=== PATIENT | female | born 1975 | race Caucasian/White ===

== ENCOUNTER 2021-01-09 17:43 | Emergency (ER) | payer BC, OTHER ==
[2021-01-09] MEDS ORDERED: TETRACAINE 0.5% STERI-UNIT SOL OP STA (17:47)
[2021-01-09] MEDS ORDERED: TETRACAINE 0.5% STERI-UNIT SOL OP ONE (17:49)
[2021-01-09] MEDS ORDERED: Fluor-I-Strip/Ful-Flo OP ONE ×2 (17:51→17:52)
--- NOTE | 2021-01-09 17:51 | ERPHSYRPT ---
- History of Present Illness Time Seen by Provider: 01/09/21 17:51 Source: patient Exam Limitations: no limitations Patient Subjective Stated Complaint: L eye pain Triage Nursing Assessment: pt to ED c/o L eye pain 7/10 after getting possible FB in eye this morning in shower. pt states she flushed eye with a whole bottle of rinse but has had no relief. denies vision changes or difficulty. noted redness. Physician History: This is a 45-year-old white female who woke up this morning feeling fine splashed cool water on her face and then suddenly had redness tearing of the left eye and a sensation of a foreign body. She attempted to irrigate the eye at work. She feels as though it is more of a foreign body rather than a scratch. She has no other explanation for this. This is never happened to her in the past. She does have a little bit of a headache behind the eye. She has light sensitivity is present in the left eye. Timing/Duration: today Location: left eye Severity: mild Apparent Injury: possibly Associated Symptoms: burning, itching, sensitivity to light, redness, foreign b arnoldo sensation Visual Assistive Devices: None Chemical Exposure: No Trauma: No Welding Arc/Tanning Bed Exposure: No Allergies/Adverse Reactions: No Known Drug Allergies Allergy (Verified 01/09/21 17:51) Hx Tetanus, Diphtheria Vaccination/Date Given: No Hx Influenza Vaccination/Date Given: No Hx Pneumococcal Vaccination/Date Given: No Travel Risk - International Travel Have you traveled outside of the country in past 3 weeks: No - Coronavirus Screening Are you exhibiting any of the following symptoms?: No Close contact with a COVID-19 positive Pt in past 14-21 Days: No - Vaccine Status Have you recieved a Covid-19 vaccination: No - Review of Systems Constitutional: No Symptoms Eyes: Eye Redness, Foreign Body Sensation, Other (Sensitivity) Ears, Nose, & Throat: No Symptoms Respiratory: No Symptoms Cardiac: No Symptoms Abdominal/Gastrointestinal: No Symptoms Genitourinary Symptoms: No Symptoms Musculoskeletal: No Symptoms Skin: No Symptoms Neurological: No Symptoms Psychological: No Symptoms Endocrine: No Symptoms Hematologic/Lymphatic: No Symptoms Immunological/Allergic: No Symptoms All Other Systems: Reviewed and Negative - Past Medical History Pertinent Past Medical History: No Neurological History: No Pertinent History ENT History: No Pertinent History Cardiac History: No Pertinent History Respiratory History: No Pertinent History Endocrine Medical History: No Pertinent History Musculoskeletal History: No Pertinent History GI Medical History: No Pertinent History History: No Pertinent History Psycho-Social History: No Pertinent History Female Reproductive Disorders: No Pertinent History - Past Surgical History Past Surgical History: No - Social History Smoking Status: Never smoker Exposure to second hand smoke: No Drug Use: none Patient Lives Alone: No - Female History Hx Now: No - Nursing Vital Signs Nursing Vital Signs: Initial Vital Signs Temperature 97.7 F 01/09/21 17:44 Pulse Rate 95 H 01/09/21 17:44 Respiratory Rate 18 01/09/21 17:44 Blood Pressure 134/78 01/09/21 17:44 O2 Sat by Pulse Oximetry 99 01/09/21 17:44 Pain Scale Pain Intensity 7 - Physical Exam General Appearance: no apparent distress, alert, anxiety Eye Exam: right eye: normal inspection, left eye: PERRL, EOMI, other (Conjunctivitis) Ears, Nose, Throat Exam: normal ENT inspection, moist mucous membranes Neck Exam: normal inspection, non-tender, supple, full range of motion Respiratory Exam: lungs clear, airway intact, No chest tenderness, No respiratory distress Gastrointestinal Exam: No tenderness Extremity Exam: normal inspection, normal range of motion, pelvis stable Neurologic: alert, oriented x 3, cooperative, 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, normal mood/affect, nml cerebellar function, nml station & gait, sensation nml Skin Exam: normal color, warm, dry Lymphatic: No adenopathy SpO2 Interpretation: normal SpO2: 99 O2 Delivery: Room Air - Course Nursing assessment & vital signs reviewed: Yes Ordered Tests: Medication Summary Discontinued Medications Generic Name Dose Route Start Last Admin Trade Name Cora PRN Reason Stop Dose Admin Eye Irrigation Solution 15 ml 01/09/21 17:53 01/09/21 17:54 Eye-Stream Solution OP 01/09/21 17:54 15 ml STAT ONE Administration Eye Irrigation Solution Confirm 01/09/21 17:53 Eye-Stream Solution Administered 01/09/21 17:54 Dose 30 ml .ROUTE .STK-MED ONE Fluorescein Sodium 1 mg 01/09/21 17:51 01/09/21 17:53 Dqpyc-O-Fqenk/Ful-Alonso OP 01/09/21 17:52 1 mg STAT ONE Administration Fluorescein Sodium Confirm 01/09/21 17:52 Mivfh-J-Tjnam/Ful-Alonso Administered 01/09/21 17:53 Dose 1 mg OP .STK-MED ONE Tetracaine HCl 4 ml 01/09/21 17:47 01/09/21 17:52 Tetracaine 0.5% Steri-Unit Alexandra OP 01/09/21 17:48 4 ml STAT STA Administration Tetracaine HCl Confirm 01/09/21 17:49 Tetracaine 0.5% Steri-Unit Alexandra Administered 01/09/21 17:50 Dose 4 ml OP .STK-MED ONE - Progress Progress: improved, pain not gone completely, re-examined Counseled pt/family regarding: diagnosis, need for follow-up - Departure Departure Disposition: Home Clinical Impression: Conjunctivitis, left eye Condition: Stable Critical Care Time: No Referrals: ASHLEY NEWBY [Primary Care Provider] - Additional Instructions: Use the antibiotic ointment in left eye 3 times a day. In between, flushed her eye out with Eye-Stream solution. Take the medication as prescribed. Follow-up with your primary care physician or ophthalmology in 3 to 4 days if symptoms have not improved. Return to the emergency department if symptoms actually worsened. Prescriptions: Hydrocodone/APAP 5/325 [Redford 5/325 mg] 1 each PO Q8H PRN PRN #6 tablet MDD 3 PRN Reason: Pain Erythromycin Base 3.5 gm [Erythromycin 3.5 GM OPHTH.] 3.5 gm OP TID #1 tube Ondansetron HCl [Zofran] 4 mg PO TID PRN #10 tablet PRN Reason: Nausea/Vomiting
[2021-01-09] MEDS ORDERED: Eye-Stream Solution OP ONE (17:53)
[2021-01-09] MEDS ORDERED: Eye-Stream Solution ONE (17:53)
[2021-01-09 18:54] VITALS: BP 145/86; PULSE 88; O2SAT 98
== END 2021-01-09 18:54 | disposition home or self-care (01) ==
LOC: ED 17:43
DX: H10.9 Unspecified conjunctivitis (principal); H57.12 Ocular pain, left eye
CPT/HCPCS: 99283; A9270-GY

== ENCOUNTER 2021-03-14 23:43 | Emergency (ER) | payer OTHER ==
[2021-03-14] MEDS ORDERED: TETRACAINE 0.5% STERI-UNIT SOL OP ONE (23:58)
[2021-03-15 00:11] VITALS: O2SAT 100
[2021-03-15] MEDS: TETRACAINE 0.5% STERI-UNIT SOL OP STA (00:12)
--- NOTE | 2021-03-15 00:17 | ERPHSYRPT ---
- History of Present Illness Time Seen by Provider: 03/15/21 00:11 Source: patient Patient Subjective Stated Complaint: pt states "Something made its way to the front of the eye." Triage Nursing Assessment: pt ambulated into the er; pt is axo x4; pt is holding left eye; pt is restless; pt c/o left eye pain; pt states that she was in the er a month prior for foreign body in left eye; pt states that the eye improved with medication; pt states that tonight she was use head lice shampoo when she got some in her left eye; pt states that she rinsed her eye; pt states that she feel like there is something moving around in her eye; pt states that she had no relief with flushing her eye; pt is guarding left eye; pt covering left eye with hand and not letting this examine eye; left sclera is red; left is red and swollen; clear discharge present to left eye; vitals wnl; pt states 6/10 pain to left eye Physician History: This is a 46-year-old female that presents with left eye pain and redness after washing her hair with lice shampoo. She stated that she did get some of the shampoo in her left eye and she immediately rinsed out her left eye. However she began having pain in her left eye and there is associated redness and she could not open the eye. The left eye was tearing. Therefore she came into the emergency room for evaluation. Patient states she still has her erythromycin ophthalmic ointment prescription at the pharmacy from her prior evaluation Timing/Duration: today Location: left eye Severity: mild Apparent Injury: possibly Associated Symptoms: burning, sensitivity to light, redness, foreign body sensation Allergies/Adverse Reactions: No Known Drug Allergies Allergy (Verified 03/14/21 23:49) Home Medications: No Reportable Medications [No Reported Medications] 03/14/21 [History] Hx Tetanus, Diphtheria Vaccination/Date Given: No Hx Influenza Vaccination/Date Given: No Hx Pneumococcal Vaccination/Date Given: No Travel Risk - International Travel Have you traveled outside of the country in past 3 weeks: No - Coronavirus Screening Are you exhibiting any of the following symptoms?: No Close contact with a COVID-19 positive Pt in past 14-21 Days: No - Vaccine Status Have you recieved a Covid-19 vaccination: No - Review of Systems Constitutional: No Symptoms Eyes: Eye Pain, Eye Redness, Tearing Ears, Nose, & Throat: No Symptoms Respiratory: No Symptoms Cardiac: No Symptoms Abdominal/Gastrointestinal: No Symptoms Genitourinary Symptoms: No Symptoms Musculoskeletal: No Symptoms Skin: No Symptoms Neurological: No Symptoms Psychological: No Symptoms Endocrine: No Symptoms Hematologic/Lymphatic: No Symptoms Immunological/Allergic: No Symptoms All Other Systems: Reviewed and Negative - Past Medical History Pertinent Past Medical History: No Neurological History: No Pertinent History ENT History: No Pertinent History Cardiac History: No Pertinent History Respiratory History: No Pertinent History Endocrine Medical History: No Pertinent History Musculoskeletal History: No Pertinent History GI Medical History: No Pertinent History History: No Pertinent History Psycho-Social History: No Pertinent History Female Reproductive Disorders: No Pertinent History - Past Surgical History Past Surgical History: No - Social History Smoking Status: Former smoker Exposure to second hand smoke: No Drug Use: none Patient Lives Alone: No - Female History Hx Now: No - Nursing Vital Signs Nursing Vital Signs: Initial Vital Signs Pulse Rate 95 H 03/14/21 23:50 Respiratory Rate 18 03/14/21 23:50 Blood Pressure 127/81 03/14/21 23:50 O2 Sat by Pulse Oximetry 100 03/14/21 23:50 Pain Scale Pain Intensity 6 - Physical Exam General Appearance: no apparent distress, alert, anxiety Eye Exam: right eye: normal inspection, left eye: conjunctival inflammation, bilateral eye: PERRL, EOMI Ears, Nose, Throat Exam: normal ENT inspection, moist mucous membranes Neck Exam: normal inspection, non-tender, supple, full range of motion Respiratory Exam: chest tenderness, airway intact Gastrointestinal Exam: No tenderness Extremity Exam: normal inspection, normal range of motion, pelvis stable Neurologic: alert, oriented x 3, cooperative, 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, normal mood/affect, nml cerebellar function, nml station & gait, sensation nml Skin Exam: normal color, warm, dry Lymphatic: No adenopathy SpO2 Interpretation: normal SpO2: 100 O2 Delivery: Room Air - Course Nursing assessment & vital signs reviewed: Yes Ordered Tests: Medication Summary Discontinued Medications Generic Name Dose Route Start Last Admin Trade Name Freq PRN Reason Stop Dose Admin Tetracaine HCl Confirm 03/14/21 23:58 Tetracaine 0.5% Steri-Unit Alexandra Administered 03/14/21 23:59 Dose 4 ml OP .STK-MED ONE - Progress Progress: improved, pain not gone completely Counseled pt/family regarding: diagnosis - Departure Departure Disposition: Home Clinical Impression: Inflammation of conjunctiva Condition: Stable Critical Care Time: No Referrals: ASHLEY NEWBY [Primary Care Provider] - Additional Instructions: Place 0.5 cm strip of erythromycin ophthalmologic ointment into the left eye 3 times a day for 5 days. Purchase [id number]-ekksesh eye rinse product and use 3 times a day as discussed. Follow-up with unit leader for persistent symptoms. The erythromycin ophthalmic ointment prescription from your pharmacy and use as directed
[2021-03-15] MEDS ORDERED: Erythromycin 1 GM ONE (00:20)
[2021-03-15] MEDS ORDERED: NORCO 5/325 MG ONE (00:21)
[2021-03-15] MEDS: Erythromycin 1 GM OP STA (00:22)
[2021-03-15] MEDS: NORCO 5/325 MG PO ONE (00:22)
[2021-03-15 00:34] VITALS: BP 135/88; PULSE 82
== END 2021-03-15 00:34 | disposition home or self-care (01) ==
LOC: ED 23:43
DX: H10.9 Unspecified conjunctivitis (principal)
CPT/HCPCS: 99283; A9270-GY

== ENCOUNTER 2021-03-15 12:11 | Emergency (ER) | payer OTHER ==
[2021-03-15] MEDS ORDERED: Eye-Stream Solution ONE (12:19)
[2021-03-15] MEDS ORDERED: TETRACAINE 0.5% STERI-UNIT SOL OP ONE (12:19)
[2021-03-15] MEDS ORDERED: Fluor-I-Strip/Ful-Flo OP ONE ×2 (12:19→12:24)
[2021-03-15] MEDS ORDERED: Eye-Stream Solution OP ONE (12:24)
[2021-03-15] MEDS ORDERED: TETRACAINE 0.5% STERI-UNIT SOL OP STA (12:24)
[2021-03-15 12:25] VITALS: BP 134/80; PULSE 96; O2SAT 100
--- NOTE | 2021-03-15 12:53 | ERPHSYRPT ---
- History of Present Illness Time Seen by Provider: 03/15/21 12:48 Source: patient Exam Limitations: no limitations Patient Subjective Stated Complaint: was here last night and still thinks that there is something in her left eye Triage Nursing Assessment: Pt drove self to the ER, vitals wnl, rates pain to left eye as 8/10, pt thinks something is in her left eye, vision 20/30 Physician History: right eye is 20/20 near vision in ER No FB with double lid eversion. irrigated. conjunctival irritation and mild drainage right eye. abrasion upper cornea right eye with fluorscein dye. in patchy. globe intact anterior chamber clear. no hx metal on metal . Timing/Duration: yesterday Location: right eye Severity: moderate Apparent Injury: possibly Associated Symptoms: pain, burning, sensitivity to light, redness, matting, eyelid swelling, foreign body sensation Visual Assistive Devices: Glasses, At Home Chemical Exposure: Yes (lice shampoo ) Trauma: Yes (water splashed in right eye when washing out) Welding Arc/Tanning Bed Exposure: No Allergies/Adverse Reactions: No Known Drug Allergies Allergy (Verified 03/15/21 12:23) Hx Tetanus, Diphtheria Vaccination/Date Given: Yes (today) Hx Influenza Vaccination/Date Given: No Hx Pneumococcal Vaccination/Date Given: No Travel Risk - International Travel Have you traveled outside of the country in past 3 weeks: No - Coronavirus Screening Are you exhibiting any of the following symptoms?: No - Vaccine Status Have you recieved a Covid-19 vaccination: No - Review of Systems Constitutional: No Fever, No Chills Eyes: Eye Pain, Photophobia, Tearing, Foreign Body Sensation Ears, Nose, & Throat: No Symptoms Respiratory: No Cough, No Dyspnea Cardiac: No Chest Pain, No Edema, No Syncope Abdominal/Gastrointestinal: No Abdominal Pain, No Nausea, No Vomiting, No Diarrhea Genitourinary Symptoms: No Dysuria Musculoskeletal: No Back Pain, No Neck Pain Skin: No Rash Neurological: No Dizziness, No Focal Weakness, No Sensory Changes Psychological: No Symptoms Endocrine: No Symptoms All Other Systems: Reviewed and Negative - Past Medical History Pertinent Past Medical History: No Neurological History: No Pertinent History ENT History: No Pertinent History Cardiac History: No Pertinent History Respiratory History: No Pertinent History Endocrine Medical History: No Pertinent History Musculoskeletal History: No Pertinent History GI Medical History: No Pertinent History History: No Pertinent History Psycho-Social History: No Pertinent History Female Reproductive Disorders: No Pertinent History - Past Surgical History Past Surgical History: No - Social History Smoking Status: Never smoker Exposure to second hand smoke: No Drug Use: none Patient Lives Alone: No - Female History Hx Now: No - Nursing Vital Signs Nursing Vital Signs: Initial Vital Signs Temperature 97.4 F 03/15/21 12:16 Pulse Rate 96 H 03/15/21 12:16 Blood Pressure 134/80 03/15/21 12:16 O2 Sat by Pulse Oximetry 100 03/15/21 12:16 Pain Scale Pain Intensity 8 - Physical Exam General Appearance: no apparent distress Vision Acuity Degree Evaluation Phase: Uncorrected Vision Acuity Right Eye: 20/30 Vision Acuity Left Eye: 20/20 (near testing) Eye Exam: right eye: normal inspection, PERRL, EOMI, left eye: conjunctival inflammation, corneal abrasion, erythema, exudate, eyelid inflammation Ears, Nose, Throat Exam: normal ENT inspection Neck Exam: normal inspection, non-tender, supple, full range of motion Respiratory Exam: normal breath sounds Cardiovascular Exam: regular rate/rhythm Gastrointestinal Exam: soft, No tenderness Extremity Exam: normal inspection, normal range of motion Neurologic: alert, oriented x 3, cooperative Skin Exam: normal color, warm SpO2: 100 - Course Nursing assessment & vital signs reviewed: Yes Ordered Tests: Medication Summary Discontinued Medications Generic Name Dose Route Start Last Admin Trade Name Freq PRN Reason Stop Dose Admin Eye Irrigation Solution Confirm 03/15/21 12:19 Eye-Stream Solution Administered 03/15/21 12:20 Dose 30 ml .ROUTE .STK-MED ONE Eye Irrigation Solution 15 ml 03/15/21 12:24 03/15/21 12:26 Eye-Stream Solution OP 03/15/21 12:25 15 ml STAT ONE Administration Fluorescein Sodium Confirm 03/15/21 12:19 Cjipa-F-Tiqxb/Ful-Alonso Administered 03/15/21 12:20 Dose 1 mg OP .STK-MED ONE Fluorescein Sodium 1 mg 03/15/21 12:24 03/15/21 12:26 Njoxe-T-Idikb/Ful-Alonso OP 03/15/21 12:25 1 mg STAT ONE Administration Tetracaine HCl Confirm 03/15/21 12:19 Tetracaine 0.5% Steri-Unit Alexandra Administered 03/15/21 12:20 Dose 4 ml OP .STK-MED ONE Tetracaine HCl 4 ml 03/15/21 12:24 03/15/21 12:26 Tetracaine 0.5% Steri-Unit Alexandra OP 03/15/21 12:25 4 ml STAT STA Administration - Progress Progress: improved, re-examined Progress Note: 03/15/21 13:02 immediate relief after tetracaine instilled. swelling resolving after irrigation. Counseled pt/family regarding: diagnosis, need for follow-up - Departure Departure Disposition: Home Clinical Impression: Conjunctivitis, left eye, Left cornea abrasion Condition: Good Critical Care Time: No Referrals: ASHLEY NEWBY [Primary Care Provider] - Instructions: Chemical Eye Injury (DC), Corneal Abrasion, Foreign Body in Eye (DC) Additional Instructions: although we did not see any remaining foreign material in the eye , there still could be some undetected, so it is important to see the eye Dr to recheck this early this week, and to see how you are progressing. return meantime if not improving. We did see an area on the cornea which could be from a chemical burn from the shampoo or an abrasion on the cornea , so we are giving both instructions. Prescriptions: Erythromycin Base 3.5 gm [Erythromycin 3.5 GM OPHTH.] 3.5 gm OP QID #1 tube
[2021-03-15] MEDS ORDERED: Erythromycin 3.5 GM OPHTH. OP ONE (12:57)
[2021-03-15] MEDS ORDERED: Adacel Vial IM ONE ×2 (12:58→13:04)
[2021-03-15] MEDS ORDERED: Erythromycin 1 GM ONE (13:03)
== END 2021-03-15 13:12 | disposition home or self-care (01) ==
LOC: ED 12:11
DX: H10.9 Unspecified conjunctivitis (principal); S05.01XA Injury of conjunctiva and corneal abrasion without foreign body, right eye, initial encounter; S00.211A Abrasion of right eyelid and periocular area, initial encounter
CPT/HCPCS: 90471; 90715; 99283; A9270-GY

== ENCOUNTER 2022-05-26 21:35 | Emergency (ER) | payer OTHER ==
[2022-05-26 22:18] LABS: Absolute Neutrophil Ct (ANC) 4.31 x10^3/uL (1.4-6.9); Basophil (Absolute #) 0.04 x10^3/uL (0-0.4); Eosinophil % 4.8 % (0.00-5.0); Hematocrit 35.1 % (35-47); Hemoglobin 11.2 g/dL (12.0-16.0); Lymphocyte (Absolute #) 2.77 x10^3/uL (1.0-4.6); Lymphocytes % 33.3 % (24.0-44.0); Mean Corpuscular Hemoglobin 27.1 pg (26-32); Mean Corpuscular Hgb Concent. 31.9 g/dL (32-36); Mean Platelet Volume 9.5 fL (7.5-11.0); Monocyte (Absolute #) 0.79 x10^3/uL (0.0-1.3); Monocytes % 9.5 % (0.0-12.0); Neutrophil % 51.7 % (36.0-66.0); Platelet Count 391 x10^3/uL (150-450); Red Blood Count 4.13 x10^6/uL (4.1-5.4); White Blood Count 8.3 x10^3/uL (4.0-10.5)
[2022-05-26 22:32] LABS: ALBUMIN 4.1 g/dL (3.5-5.0); ALKALINE PHOSPHATASE 31 U/L (38-126); ANION GAP 13.3 MEQ/L (5-15); BILIRUBIN,TOTAL < 0.10 mg/dL (0.2-1.3); BLOOD UREA NITROGEN 20 mg/dL (7-17); CHLORIDE 105 mmol/L (98-107); Calcium 9.1 mg/dL (8.4-10.2); Carbon Dioxide 23 mmol/L (22-30); Creatinine 1 1.02 mg/dL (0.52-1.04); EST GLOMERULAR FILTRATION RATE > 60.0 ML/MIN; Glucose 92 mg/dL (74-106); Potassium 3.8 mmol/L (3.5-5.1); SGOT/AST 21 U/L (14-36); SGPT/ALT 17 U/L (0-35); SODIUM 137 mmol/L (137-145); Total Protein 7.1 g/dL (6.3-8.2)
--- NOTE | 2022-05-26 22:56 | ERPHSYRPT ---
- History of Present Illness Time Seen by Provider: 05/26/22 21:45 Historian: patient Patient Subjective Stated Complaint: pt states "I have been having L shoulder and across her chest pain and numbess for a couple weeks." Triage Nursing Assessment: pt ambulatory to bed by self, pt alert and oriented x3, pt c/o intermittent L shoulder pain and chest pain x2 weeks, pain not in current pain but the episode happens it is 6/10 per patient Physician History: Patient is a 47-year-old female presents to emergency department for evaluation of left shoulder pain and numbness across her chest. Symptoms have been intermittent over the past 2 to 3 weeks. 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 No trauma. No associated nausea vomiting or diaphoresis. Patient does not have a cardiovascular history. Symptoms are mild to moderate in intensity. No specific worsening improving factors. Patient states the pain comes on randomly whether she is active or resting. No dizziness. No syncope. Patient denies daniel chest pain. Patient denies history of the same. She voices no other complaints or concerns at this time. Portions of this note were created with voice recognition technology. There may be grammatical, spelling, punctuation or sound alike errors Timing/Duration: week(s) (2 to 3 weeks) Activities at Onset: none (Pain described as a intermittent numbness sensation to her left shoulder and chest.) Severity of Pain-Max: moderate Severity of Pain-Current: mild Modifying Factors: Improves With: nothing Associated Symptoms: denies symptoms Prior Chest Pain/Cardiac Workup: no prior chest pain Nitro Today/Relief: no nitro taken today Aspirin Treatment Today: no aspirin today Allergies/Adverse Reactions: No Known Drug Allergies Allergy (Verified 05/26/22 21:48) Home Medications: No Reportable Medications [No Reported Medications] 05/26/22 [History] Hx Tetanus, Diphtheria Vaccination/Date Given: Yes Hx Influenza Vaccination/Date Given: No Hx Pneumococcal Vaccination/Date Given: No Immunizations Up to Date: Yes Travel Risk - International Travel Have you traveled outside of the country in past 3 weeks: No - Coronavirus Screening Are you exhibiting any of the following symptoms?: No Close contact with a COVID-19 positive Pt in past 14-21 Days: No - Vaccine Status Have you recieved a Covid-19 vaccination: No - Review of Systems Constitutional: No Symptoms, No Fever, No Chills Eyes: No Symptoms Ears, Nose, & Throat: No Symptoms Respiratory: No Symptoms, No Cough, No Dyspnea Cardiac: No Symptoms, No Chest Pain, No Edema, No Syncope Abdominal/Gastrointestinal: No Symptoms, No Abdominal Pain, No Nausea, No Vomiting, No Diarrhea Genitourinary Symptoms: No Symptoms, No Dysuria Musculoskeletal: No Symptoms, No Back Pain, No Neck Pain Skin: No Symptoms, No Rash Neurological: No Symptoms, No Dizziness, No Focal Weakness, No Sensory Changes Psychological: No Symptoms Endocrine: No Symptoms Hematologic/Lymphatic: No Symptoms Immunological/Allergic: No Symptoms All Other Systems: Reviewed and Negative - Past Medical History Pertinent Past Medical History: No Neurological History: No Pertinent History ENT History: No Pertinent History Cardiac History: No Pertinent History Respiratory History: No Pertinent History Endocrine Medical History: No Pertinent History Musculoskeletal History: No Pertinent History GI Medical History: No Pertinent History History: No Pertinent History Psycho-Social History: No Pertinent History Female Reproductive Disorders: No Pertinent History - Past Surgical History Past Surgical History: No Neuro Surgical History: No Pertinent History Cardiac: No Pertinent History Respiratory: No Pertinent History Gastrointestinal: No Pertinent History Genitourinary: No Pertinent History Musculoskeletal: No Pertinent History Female Surgical History: No Pertinent History - Social History Smoking Status: Never smoker Exposure to second hand smoke: No Drug Use: none Patient Lives Alone: No - Female History Hx Last Menstrual Period: possible february 21 per pt Hx Now: No - Nursing Vital Signs Nursing Vital Signs: Initial Vital Signs Temperature 98.0 F 05/26/22 21:36 Pulse Rate 79 05/26/22 21:36 Respiratory Rate 18 05/26/22 21:36 Blood Pressure 136/74 05/26/22 21:36 O2 Sat by Pulse Oximetry 98 05/26/22 21:36 Pain Scale Pain Intensity 0 - Physical Exam General Appearance: no apparent distress, alert Eye Exam: PERRL/EOMI, eyes nml inspection Ears, Nose, Throat Exam: normal ENT inspection, moist mucous membranes Neck Exam: normal inspection, non-tender, supple, full range of motion Respiratory Exam: normal breath sounds, lungs clear, No respiratory distress Cardiovascular Exam: regular rate/rhythm, normal heart sounds Gastrointestinal/Abdomen Exam: soft, No tenderness, No mass Back Exam: normal inspection, No CVA tenderness, No vertebral tenderness Extremity Exam: normal inspection, normal range of motion Neurologic Exam: alert, oriented x 3, cooperative, normal mood/affect, sensation nml, No motor deficits Skin Exam: normal color, warm, dry SpO2 Interpretation: normal SpO2: 98 O2 Delivery: Room Air - Course Nursing assessment & vital signs reviewed: Yes EKG Interpreted by Me: RATE (77), Sinus Rhythm, NORMAL AXIS, NORMAL INTERVALS - Radiology Exams Chest X-ray Interpretation: Interpreted by me (Negative CXR) Ordered Tests: Active Orders 24 hr Category Date Time Status Buffing Machine Operator STAT Care 05/26/22 21:54 Active Clean Catch Urine Specimen STAT Care 05/26/22 22:28 Active EKG-ER Only STAT Care 05/26/22 21:53 Active IV Insertion STAT Care 05/26/22 21:53 Active Pulse Oximetry (ED) STAT Care 05/26/22 21:53 Active CHEST 1 VIEW (PORTABLE) Stat Exams 05/26/22 21:54 Taken CBC W DIFF Stat Lab 05/26/22 22:10 Completed CMP Stat Lab 05/26/22 22:10 Completed D-DIMER QUANTITATIVE Stat Lab 05/26/22 22:10 Completed TROPONIN Q4H Lab 05/26/22 22:10 Completed TROPONIN Q4H Lab 05/27/22 00:31 Completed TROPONIN Q4H Lab 05/27/22 06:00 Ordered Urine Triage Profile Stat Lab 05/26/22 22:45 Completed Medication Summary Discontinued Medications Generic Name Dose Route Start Last Admin Trade Name Freq PRN Reason Stop Dose Admin Sodium Chloride 1,000 mls @ 999 mls/hr 05/26/22 23:52 05/26/22 23:56 Sodium Chloride 0.9% 1000 Ml IV 05/27/22 00:52 999 mls/hr .Q1H1M STA Administration Sodium Chloride Confirm 05/26/22 23:55 Sodium Chloride 0.9% 1000 Ml Administered 05/26/22 23:56 Dose 1,000 mls @ ud .ROUTE .STK-MED ONE Lab/Rad Data: Laboratory Result Diagrams 05/26/22 22:10 05/26/22 22:10 Laboratory Results 05/27/22 05/26/22 05/26/22 Range/Units 00:31 22:45 22:10 WBC (4.0-10.5) x10^3/uL RBC (4.1-5.4) x10^6/uL Hgb (12.0-16.0) g/dL Hct (35-47) % MCV (78-100) fL MCH (26-32) pg MCHC (32-36) g/dL RDW (11.5-14.0) % Plt Count (150-450) x10^3/uL MPV (7.5-11.0) fL Gran % (36.0-66.0) % Immature Gran % (Auto) (0.00-0.4) % Nucleat RBC Rel Count (0.00-0.1) % Eos # (Auto) (0-0.5) x10^3/uL Immature Gran # (Auto) (0.00-0.03) x10^3u/L Absolute Lymphs (auto) (1.0-4.6) x10^3/uL Absolute Monos (auto) (0.0-1.3) x10^3/uL Absolute Nucleated RBC (0.00-0.01) x10^3u/L Lymphocytes % (24.0-44.0) % Monocytes % (0.0-12.0) % Eosinophils % (0.00-5.0) % Basophils % (0.0-0.4) % Absolute Granulocytes (1.4-6.9) x10^3/uL Basophils # (0-0.4) x10^3/uL D-Dimer (0.0-0.50) mg/L Sodium (137-145) mmol/L Potassium (3.5-5.1) mmol/L Chloride (98-107) mmol/L Carbon Dioxide (22-30) mmol/L Anion Gap (5-15) MEQ/L BUN (7-17) mg/dL Creatinine (0.52-1.04) mg/dL Estimated GFR ML/MIN Glucose (74-106) mg/dL Calcium (8.4-10.2) mg/dL Total Bilirubin (0.2-1.3) mg/dL AST (14-36) U/L ALT (0-35) U/L Alkaline Phosphatase (38-126) U/L Troponin I < 0.012 < 0.012 (0.000-0.034) ng/mL Serum Total Protein (6.3-8.2) g/dL Albumin (3.5-5.0) g/dL Urine Opiates Level NEGATIVE (NEGATIVE) Ur Methadone NEGATIVE (NEGATIVE) Urine Barbiturates NEGATIVE (NEGATIVE) Ur Phencyclidine (PCP) NEGATIVE (NEGATIVE) Urine Amphetamine NEGATIVE (NEGATIVE) U Benzodiazepine Level NEGATIVE (NEGATIVE) Urine Cocaine NEGATIVE (NEGATIVE) Urine Marijuana (THC) NEGATIVE (NEGATIVE) 05/26/22 05/26/22 05/26/22 Range/Units 22:10 22:10 22:10 WBC 8.3 (4.0-10.5) x10^3/uL RBC 4.13 (4.1-5.4) x10^6/uL Hgb 11.2 L (12.0-16.0) g/dL Hct 35.1 (35-47) % MCV 85.0 (78-100) fL MCH 27.1 (26-32) pg MCHC 31.9 L (32-36) g/dL RDW 17.0 H (11.5-14.0) % Plt Count 391 (150-450) x10^3/uL MPV 9.5 (7.5-11.0) fL Gran % 51.7 (36.0-66.0) % Immature Gran % (Auto) 0.2 (0.00-0.4) % Nucleat RBC Rel Count 0.0 (0.00-0.1) % Eos # (Auto) 0.40 (0-0.5) x10^3/uL Immature Gran # (Auto) 0.02 (0.00-0.03) x10^3u/L Absolute Lymphs (auto) 2.77 (1.0-4.6) x10^3/uL Absolute Monos (auto) 0.79 (0.0-1.3) x10^3/uL Absolute Nucleated RBC 0.00 (0.00-0.01) x10^3u/L Lymphocytes % 33.3 (24.0-44.0) % Monocytes % 9.5 (0.0-12.0) % Eosinophils % 4.8 (0.00-5.0) % Basophils % 0.5 (0.0-0.4) % Absolute Granulocytes 4.31 (1.4-6.9) x10^3/uL Basophils # 0.04 (0-0.4) x10^3/uL D-Dimer 0.29 (0.0-0.50) mg/L Sodium 137 (137-145) mmol/L Potassium 3.8 (3.5-5.1) mmol/L Chloride 105 (98-107) mmol/L Carbon Dioxide 23 (22-30) mmol/L Anion Gap 13.3 (5-15) MEQ/L BUN 20 H (7-17) mg/dL Creatinine 1.02 (0.52-1.04) mg/dL Estimated GFR > 60.0 ML/MIN Glucose 92 (74-106) mg/dL Calcium 9.1 (8.4-10.2) mg/dL Total Bilirubin < 0.10 L (0.2-1.3) mg/dL AST 21 (14-36) U/L ALT 17 (0-35) U/L Alkaline Phosphatase 31 L (38-126) U/L Troponin I (0.000-0.034) ng/mL Serum Total Protein 7.1 (6.3-8.2) g/dL Albumin 4.1 (3.5-5.0) g/dL Urine Opiates Level (NEGATIVE) Ur Methadone (NEGATIVE) Urine Barbiturates (NEGATIVE) Ur Phencyclidine (PCP) (NEGATIVE) Urine Amphetamine (NEGATIVE) U Benzodiazepine Level (NEGATIVE) Urine Cocaine (NEGATIVE) Urine Marijuana (THC) (NEGATIVE) - Progress Progress: improved Air Movement: good Progress Note: Patient's heart score is 2 this indicates low risk for major adverse coronary event. Percentage ranges between 0.9 and 1.7%. Patient reassessed. She remains asymptomatic. Troponin negative x2. EKG normal sinus rhythm. D-dimer negative. Chest x-ray within normal limits. Laboratory work-up essentially unremarkable. Will discharge home. Patient agrees to follow-up with her primary care doctor within 48 hours for evaluation. She voices no other complaints or concerns at this time. Portions of this note were created with voice recognition technology. There may be grammatical, spelling, punctuation or sound alike errors 05/27/22 01:13 Blood Culture(s) Obtained: No Antibiotics given: No Counseled pt/family regarding: lab results, diagnosis, need for follow-up, rad results - Departure Departure Disposition: Home Clinical Impression: Chest pain Condition: Stable Critical Care Time: No Referrals: ROSETTA DUFF, [employer] [Primary Care Provider] - Follow up/PCP as directed Additional Instructions: Discharge/Care Plan JAMA DEL CASTILLO was seen on 05/26/22 in the Emergency Room. The patient was counseled regarding Diagnosis,Lab results, Imaging studies, need for follow up and when to return to the Emergency Room. Prescriptions given: Discharge Note I have spoken with the patient and/or caregivers. I have explained the patient's condition, diagnosis and treatment plan based on the information available to me at this time. I have answered the patient's and/or caregiver's questions and addressed any concerns. The patient and/or caregivers have as good understanding of the patient's diagnosis, condition and treatment plan as can be expected at this point. The vital signs have been stable. The patient's condition is stable and appropriate for discharge from the emergency department. The patient will pursue further outpatient evaluation with the primary care physician or other designated or consulting physician as outlined in the discharge instructions. The patient and/or caregivers are agreeable to this plan of care and follow-up instructions have been explained in detail. The patient and/or caregivers have received these instruction. The patient/and or caregivers are aware that any significant change in condition or worsening of symptoms should prompt an immediate return to this or the closest emergency department or call 911.
[2022-05-26 23:07] LABS: Amphetamine,Urine NEGATIVE (NEGATIVE); Barbiturate,Urine NEGATIVE (NEGATIVE); Benzodiazepine,Urine NEGATIVE (NEGATIVE); Cocaine,Urine NEGATIVE (NEGATIVE); Methadone,Urine NEGATIVE (NEGATIVE); Opiate,Urine NEGATIVE (NEGATIVE); PCP,Urine NEGATIVE (NEGATIVE); THC,Urine NEGATIVE (NEGATIVE)
[2022-05-26] MEDS ORDERED: Sodium Chloride 0.9% 1000 ML 1,000 ML IV STA (23:52)
[2022-05-26] MEDS ORDERED: Sodium Chloride 0.9% 1000 ML 1,000 ML ONE (23:55)
[2022-05-27 01:12] VITALS: BP 119/85; PULSE 75
[2022-05-27 01:15] VITALS: O2SAT 98
--- NOTE | 2022-05-27 08:57 | XRAY ---
Indication: Chest pain. Comparison: None Portable chest demonstrates normal heart, lungs, and bony thorax.
== END 2022-05-27 01:25 | disposition home or self-care (01) ==
LOC: ED 21:35
DX: R07.9 Chest pain, unspecified (principal); M25.512 Pain in left shoulder; Z28.310 Unvaccinated for COVID-19
CPT/HCPCS: 36000; 36415; 71045; 80053; 80307; 84484; 85025; 85379; 93005; 93041; 94760; 96360; 99284